=== PATIENT | female | born 1965 ===

== ENCOUNTER 2017-04-03 18:36 | Emergency (ER) | payer MEDICARE, MEDICAID ==
[2017-04-03 18:37] VITALS: BMI 29.0
[2017-04-03 18:42] VITALS: RESP 18; O2SAT 98
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
--- NOTE | 2017-04-03 20:38 | CT ---
EXAM: CT Head Without Intravenous Contrast CLINICAL HISTORY: 52 years old, female; Injury or trauma; Fall; Initial encounter; Blunt trauma (contusions or hematomas); Additional info: Fall, headache TECHNIQUE: Axial computed tomography images of the head/brain without intravenous contrast. All CT scans at this facility use one or more dose reduction techniques, viz.: automated exposure control; ma/kV adjustment per patient size (including targeted exams where dose is matched to indication; i.e. head); or iterative reconstruction technique. Coronal and sagittal reformatted images were created and reviewed. COMPARISON: CT - HEAD W/O CONTRAST 2016-03-23 19:06 FINDINGS: Brain: No intracranial hemorrhage. No mass. No edema. Ventricles: No hydrocephalus. Bones/joints: No acute fracture. Soft tissues: Unremarkable. Sinuses: Tiny air-fluid level within RIGHT maxillary sinus, present on previous examination. Mastoid air cells: Partial opacification of mastoids, grossly stable. Orbits: Unremarkable as visualized. IMPRESSION: 1. No intracranial hemorrhage. 2. Incidental/non-acute findings are described above.
--- NOTE | 2017-04-03 20:44 | CT ---
EXAM: CT Lumbar Spine Without Intravenous Contrast CLINICAL HISTORY: 52 years old, female; Injury or trauma; Fall; Initial encounter; Blunt trauma (contusions or hematomas); Prior surgery; Surgery date: 6+ months; Surgery type: Back surgery 4 yrs ago; Additional info: Fall, low back pain; H/o ls fusion TECHNIQUE: Axial computed tomography images of the lumbar spine without intravenous contrast. All CT scans at this facility use one or more dose reduction techniques, viz.: automated exposure control; ma/kV adjustment per patient size (including targeted exams where dose is matched to indication; i.e. head); or iterative reconstruction technique. Coronal and sagittal reformatted images were created and reviewed. COMPARISON: CR - LUMBAR SPINE COMPLETE 2015-08-13 10:07 FINDINGS: Vertebrae: 4 true lumbar type vertebral bodies and transitional L5 level. No acute fracture. Fusion from L3 to L5 levels with paired pedicle screws and posterior rods. Discs/spinal canal/neural foramina: No significant central canal stenosis. Mild neuroforaminal narrowing at L4-L5 level. Other bones/joints: Mild degenerative changes of sacroiliac joints. Soft tissues: Unremarkable. 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 IMPRESSION: 1. No fracture. 2. If back pain persists, consider MRI for further evaluation. 3. Incidental/non-acute findings are described above.
[2017-04-03 23:09] VITALS: BP 128/81; PULSE 81; TEMP 98
--- NOTE | 2017-04-04 09:34 | RAD ---
PROCEDURE: Left Knee Radiographs. HISTORY: Pain. COMPARISON: Left knee radiographs 12/04/2013. FINDINGS: BONES: No acute fracture or destructive bony lesion identified. JOINTS: Medial femorotibial compartment joint space narrowing is appreciate compatible degenerative joint disease. JOINT EFFUSION: None. OTHER FINDINGS: None. IMPRESSION: No acute fracture or dislocation appreciated. Stable mild to moderate degenerative joint disease.
== END 2017-04-03 23:10 | disposition home or self-care (01) ==
LOC: H.ER 18:36
DX: S09.90XA Unspecified injury of head, initial encounter (principal); S82.002A Unspecified fracture of left patella, initial encounter for closed fracture; M54.5 Low back pain; W19.XXXA Unspecified fall, initial encounter; Y92.410 Unspecified street and highway as the place of occurrence of the external cause; Z86.73 Personal history of transient ischemic attack (TIA), and cerebral infarction without residual deficits; I12.9 Hypertensive chronic kidney disease with stage 1 through stage 4 chronic kidney disease, or unspecified chronic kidney disease; F41.9 Anxiety disorder, unspecified; F32.9 Major depressive disorder, single episode, unspecified; E03.9 Hypothyroidism, unspecified
CPT/HCPCS: 29530; 70450; 72131; 73562; 96372; 99282; J1885

== ENCOUNTER 2017-08-01 07:41 | Day surgery (SDC) | payer MEDICARE, MEDICAID ==
[2017-08-01] MEDS ORDERED: Lactated Ringer's 1,000 ML IV ONE (08:14)
[2017-08-01 10:15] VITALS: BP 122/79; PULSE 90; RESP 13; TEMP 97; O2SAT 97
== END 2017-08-01 10:27 | disposition home or self-care (01) ==
LOC: H.ENDO 07:41
PROVIDERS: ATTEND Internal Medicine Gastroenterology
DX: K30 Functional dyspepsia (principal); J45.909 Unspecified asthma, uncomplicated; E78.5 Hyperlipidemia, unspecified; I10 Essential (primary) hypertension; D64.9 Anemia, unspecified; F41.8 Other specified anxiety disorders; G47.33 Obstructive sleep apnea (adult) (pediatric); E03.9 Hypothyroidism, unspecified; Z21 Asymptomatic human immunodeficiency virus [HIV] infection status; K21.9 Gastro-esophageal reflux disease without esophagitis
CPT/HCPCS: 43239; 88305; J7120

== ENCOUNTER 2018-08-21 15:15 | Emergency (ER) | payer MEDICARE, MEDICAID ==
[2018-08-21 15:16] VITALS: BMI 29.0
[2018-08-21 16:42] VITALS: O2SAT 98
--- NOTE | 2018-08-21 17:44 | ED PDOC ---
HPI: Back Time Seen by Provider: 08/21/18 17:01 Chief Complaint (Nursing): Back Pain History Per: Patient Additional Complaint(s): Pt. states on she noticed that her urine was cloudy and that she had dysuria. Reports that she was seen by her PMD Dr. Andrews that same day and was prescribed Macrobid for a UTI. Pt. states she did not take the Macrobid until yesterday and this morning she developed an oral temperature of 101.5 but did not take any meds to help with fever. Also reports this morning she developed non-radiating atraumatic R sided lower back pain. Reports back pain is worse sima she walks. Denies N/V/D, hematuria, cough, congestion, incontinence, saddle paresthesias, antipyretic use. Past Medical History Reviewed: Historical Data, Nursing Documentation, Vital Signs Vital Signs: Last Vital Signs Temp 98.7 F 08/21/18 16:39 Pulse 89 08/21/18 16:39 Resp 16 08/21/18 16:39 BP 107/67 08/21/18 16:39 Pulse Ox 98 08/21/18 16:39 Primary Care Provider: Camilla Andrews - Medical History PMH: Anemia, Anxiety, Asthma, Back Problems, Bipolar Disorder, Depression, GERD, HIV, HTN, Hypothyroidism, Kidney Stones, Rheumatoid Arthritis, TIA Denies: Chronic Kidney Disease - Surgical History Surgical History: Appendectomy, Back Surgery, Cholecystectomy - Family History Family History: States: Hypertension - Home Medications Home Medications: Ambulatory Orders Medication Instructions Recorded Albuterol HFA [Ventolin HFA 90 2 puff IH [id number] 08/01/17 mcg/actuation (8 g)] Amitriptyline HCl 100 mg PO DAILY 08/01/17 Aspirin [Aspirin Chewable] 81 mg PO DAILY 08/01/17 Dolutegravir Sodium [Tivicay] 50 mg PO DAILY 08/01/17 Emtricitabine/Tenofovir Diso 1 tab PO DAILY 08/01/17 [Truvada 200 MG-300 MG] Famotidine [Pepcid] 40 mg PO DAILY 08/01/17 Levothyroxine [Synthroid] 50 mcg PO DAILY 08/01/17 Nabumetone [Relafen] 500 mg PO BID 08/01/17 Pravastatin Sodium [Pravachol] 40 mg PO DAILY 08/01/17 Pregabalin [Lyrica] 150 mg PO DAILY 08/01/17 Sulfasalazine [Azulfidine] 500 mg PO Q6H 08/01/17 Valsartan/Hydrochlorothiazide 0.5 each PO DAILY 08/01/17 [Diovan Hct 160-25 mg Tablet] buPROPion XL [Wellbutrin XL] 300 mg PO DAILY 08/01/17 Cyclobenzaprine [Cyclobenzaprine 10 mg PO Q8 PRN #10 tab 08/21/18 HCl] - Allergies Allergies/Adverse Reactions: Allergies Allergy/AdvReac Type Severity Reaction Status Date / Time No Known Allergies Allergy Verified 08/21/18 16:39 Review of Systems ROS Statement: Except As Marked, All Systems Reviewed And Found Negative Constitutional: Positive for: Fever, Chills Genitourinary Female: Positive for: Dysuria Physical Exam - Physical Exam Appears: Positive for: Well, Non-toxic, No Acute Distress Skin: Positive for: Normal Color, Warm. Negative for: Rash Eye Exam: Positive for: Normal appearance Cardiovascular/Chest: Positive for: Regular Rate, Rhythm Respiratory: Positive for: Normal Breath Sounds. Negative for: Respiratory Distress Gastrointestinal/Abdominal: Positive for: Normal Exam, Soft. Negative for: Tenderness Back: Positive for: Normal Inspection. Negative for: L CVA Tenderness, R CVA Tenderness Neurological/Psych: Positive for: Awake, Alert, Oriented (x3) - Laboratory Results Result Diagrams: 08/21/18 17:28 08/21/18 18:10 - ECG O2 Sat by Pulse Oximetry: 98 - Progress ED Course And Treament: Labs, CT abd/pelvis w/o contrats, toradol 30mg IV ordered. Medical Decision Making Medical Decision Makin CT abd/pelvis: 1. A punctate intrarenal calculus identified at the lower pole left kidney. No obstructive uropathy bilaterally. No right-sided radiodense urolithiasis. Urinary bladder is distended but thin and smooth walled and otherwise unremarkable. 2. No bowel obstruction, measure edema, ascites or free intra peritoneal gas collection. 3. Prior cholecystectomy. 4. Splenomegaly to 14.4 cm once again. No definitive mass seen in this unenhanced CT exam. 5. 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 No local fluid collection or reaction associated. 6. Incidental trace pericardial effusion. On re-evaluation, pt. sleeping comfortably. Easily arousable. Reports good relief of pain. Informed of all results and advised to f/u PMD regarding pericardial effusion and small renal artery aneurysm. Advised to continue taking macrobid and is to return to ED immediately if symptoms worsen. Denies chest pain, SOB, headache, neck pain/stiffness. Case d/w Dr. Mcmahan who agrees with plan and care. Disposition - Clinical Impression Clinical Impression: Low back pain, Renal artery aneurysm - Patient ED Disposition Is Patient to be Admitted: No - Disposition Referrals: [facility] [Outside] Disposition: Routine/Home Disposition Time: 19:36 Condition: IMPROVED Additional Instructions: CONTINUE TAKING MACROBID FOLLOW UP WITH YOUR DOCTOR FOR FURTHER EVALUATION RETURN TO ED IMMEDIATELY IF SYMPTOMS WORSEN ED [place], thank you for letting us take care of you today. Your provider was Ramón Mcmahan MD and you were treated for RT SIDE BACK PAIN. The emergency medical care you received today was directed at your acute symptoms. If you were prescribed any medication, please fill it and take as directed. It may take several days for your symptoms to resolve. Return to the Emergency Department if your symptoms worsen, do not improve, or if you have any other problems. Please contact your doctor or call one of the physicians/clinics you have been referred to that are listed on the Patient Visit Information form that is inclu ded in your discharge packet. Bring any paperwork you were given at discharge with you along with any medications you are taking to your follow up visit. Our treatment cannot replace ongoing medical care by a primary care provider outside of the emergency department. Thank you for allowing the [facility] team to be part of your care today. If you had an X-Ray or CT scan: A Radiologist will review the ED reading if any change in treatment is needed we will contact you. If you had a blood, urine, or wound culture: It will take several days for the results, if any change in treatment is needed we will contact you. If you had an STI test: It will take 48 hours for the results. Please call after 1 week if you have not heard back. Prescriptions: Cyclobenzaprine [Cyclobenzaprine HCl] 10 mg PO Q8 PRN #10 tab PRN Reason: Muscle Spasm Instructions: Low Back Pain (DC) Forms: [facility] [employer] (Romanian) Print Language: ARMENIAN
[2018-08-21 17:53] LABS: BASO % 0.4 % (0.0-2.0); EOS # 0.1 K/uL (0.0-0.7); EOS % 1.1 % (0.0-4.0); HEMOGLOBIN 12.2 g/dL (12.0-16.0); LYMPH # 1.7 K/uL (1.0-4.3); LYMPH % 30.5 % (20.0-40.0); MEAN CELL VOLUME 93.7 fl (81.0-99.0); MEAN CORPUSCULAR HEMOGLOBIN 30.9 pg (27.0-31.0); MEAN PLATELET VOLUME 10.4 fl (7.2-11.7); MONO # 0.8 K/uL (0.0-0.8); MONO % 14.4 % (0.0-10.0); NEUT # 2.9 K/uL (1.8-7.0); NEUT % 53.6 % (50.0-75.0); NRBC % 0.2 % (0.0-0.0); RBC 3.94 Mil/uL (3.80-5.20); RED CELL DISTRIBUTION WIDTH 16.1 % (11.5-14.5); WHITE BLOOD COUNT 5.5 K/uL (4.8-10.8)
[2018-08-21 18:18] LABS: SQUAMOUS EPITHIAL 1 /hpf (0-5); URINE BILIRUBIN NEGATIVE (NEGATIVE); URINE BLOOD NEGATIVE (NEGATIVE); URINE CLARITY SLIGHTY-CLOUDY (Clear); URINE COLOR YELLOW (YELLOW); URINE GLUCOSE (UA) NEG (NEGATIVE); URINE LEUKOCYTE ESTERASE NEG Leu/uL (Negative); URINE PROTEIN NEGATIVE (NEGATIVE); URINE UROBILINOGEN 0.2-1.0 mg/dL (0.2-1.0)
[2018-08-21 18:47] LABS: ALB/GLOB RATIO 1.2 (1.0-2.1); ALBUMIN 4.3 g/dL (3.5-5.0); ALT/SGPT 93 U/L (9-52); AST/SGOT 95 U/L (14-36); BLOOD UREA NITROGEN 13 mg/dl (7-17); CALCIUM 9.4 mg/dL (8.4-10.2); GFR NON-AFRICAN AMERICAN > 60
--- NOTE | 2018-08-21 19:07 | CT ---
Date of service: 08/21/2018 PROCEDURE: CT Abdomen and Pelvis without intravenous contrast HISTORY: R sided low back pain, UTI sx COMPARISON: Abdomen pelvis CT with contrast 06/19/2018. TECHNIQUE: Helical CT of the abdomen and pelvis was performed without oral or intravenous contrast as per referring physician request. Coronal and sagittal reformats were generated.. Contrast dose: None Radiation dose: Total exam DLP = 878.48 mGy-cm. This CT exam was performed using one or more of the following dose reduction techniques: Automated exposure control, adjustment of the mA and/or kV according to patient size, and/or use of iterative reconstruction technique. FINDINGS: LOWER THORAX: Trace anterior pericardial effusion in the interval. Cardiac size appears upper limits normal. LIVER: Liver appears upper limits normal size. No definitive mass appreciable. GALLBLADDER AND BILE DUCTS: Prior cholecystectomy reiterated. PANCREAS: Unremarkable. No gross lesion or ductal dilatation. SPLEEN: Splenomegaly reiterated to 14.4 cm. No definitive mass appreciable associated in this unenhanced CT exam. ADRENALS: Unremarkable. No mass. KIDNEYS AND URETERS: A punctate intrarenal calculus is identified at the lower pole left kidney. No additional radiodense urolithiasis bilaterally. No obstructive uropathy bilaterally. No definitive perinephric changes bilaterally. Potential left mm right renal artery aneurysm likely present but poorly characterized given noncontrast technique. VASCULATURE: Unremarkable. No aortic aneurysm. No aortic atherosclerotic calcification or mural plaque present. BOWEL: Stomach is collapsed and not well evaluated. Further, evaluation of the gastrointestinal tract is limited due to the lack of oral contrast administration. No bowel obstruction is identified. Moderate fecal loading is seen throughout the colon. APPENDIX: No CT evidence of appendicitis. PERITONEUM: Unremarkable. No free fluid. No free air. LYMPH NODES: Unremarkable. No enlarged lymph nodes. BLADDER: Urinary bladder is distended but smooth and thin wall. No radiodense urolithiasis associated. REPRODUCTIVE: Prior hysterectomy. BONES: No interval acute fracture appreciable. Inferior lumbar post spinal fusion hardware is reiterated from L3-S1. No fracture of hardware is identified. Including intervertebral fusion at L 4 5 and L5-S1 OTHER FINDINGS: None. IMPRESSION: 1. A punctate intrarenal calculus identified at the lower pole left kidney. No obstructive uropathy bilaterally. No right-sided radiodense urolithiasis. Urinary bladder is distended but thin and smooth walled and otherwise unremarkable. 2. No bowel obstruction, measure edema, ascites or free intra peritoneal gas collection. 3. Prior cholecystectomy. 4. Splenomegaly to 14.4 cm once again. No definitive mass seen in this unenhanced CT exam. 5. 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 No local fluid collection or reaction associated. 6. Incidental trace pericardial effusion.
[2018-08-21 20:15] VITALS: BP 111/72; PULSE 85; RESP 18; TEMP 98.6
== END 2018-08-21 20:16 | disposition home or self-care (01) ==
LOC: H.ER 15:15
DX: M54.9 Dorsalgia, unspecified (principal); I72.2 Aneurysm of renal artery; E03.9 Hypothyroidism, unspecified; F31.9 Bipolar disorder, unspecified; Z86.73 Personal history of transient ischemic attack (TIA), and cerebral infarction without residual deficits
CPT/HCPCS: 74176; 80053; 81003; 81025; 85025; 87040; 87086; 96374; 99284; J1885

== ENCOUNTER → 2018-08-30 | Emergency (ER) | payer MEDICARE, MEDICAID ==
[~2018-08-30] MED LIST: Sodium Chloride 0.9% 1,000 ML IV STA; cefTRIAXone (Rocephin) 1 gm Inj ONE
[2018-08-30 17:14] VITALS: BMI 29.0
[2018-08-30 18:58] LABS: VENOUS BLOOD GAS BASE EXCESS 1.2 mmol/L (0.0-2.0); VENOUS BLOOD GAS PCO2 50 mmHg (40-60); VENOUS BLOOD GAS PO2 17 mm/Hg (30-55); VENOUS BLOOD PH 7.35 (7.32-7.43)
[2018-08-30 19:03] LABS: BASO % 0.5 % (0.0-2.0); EOS % 0.6 % (0.0-4.0); HEMOGLOBIN 12.5 g/dL (12.0-16.0); LYMPH # 2.6 K/uL (1.0-4.3); LYMPH % 31.1 % (20.0-40.0); MEAN CELL VOLUME 93.4 fl (81.0-99.0); MEAN CORPUSCULAR HEMOGLOBIN 30.5 pg (27.0-31.0); MEAN CORPUSCULAR HGB CONC 32.6 g/dL (33.0-37.0); MEAN PLATELET VOLUME 10.9 fl (7.2-11.7); MONO # 0.9 K/uL (0.0-0.8); MONO % 10.9 % (0.0-10.0); NEUT # 4.8 K/uL (1.8-7.0); NEUT % 56.9 % (50.0-75.0); RBC 4.12 Mil/uL (3.80-5.20); RED CELL DISTRIBUTION WIDTH 16.5 % (11.5-14.5); WHITE BLOOD COUNT 8.5 K/uL (4.8-10.8)
[2018-08-30 19:13] LABS: SQUAMOUS EPITHIAL 7 /hpf (0-5); URINE BACTERIA MANY (<OCC); URINE BILIRUBIN NEGATIVE (NEGATIVE); URINE BLOOD NEGATIVE (NEGATIVE); URINE CLARITY SLIGHTY-CLOUDY (Clear); URINE COLOR YELLOW (YELLOW); URINE GLUCOSE (UA) NEG (NEGATIVE); URINE LEUKOCYTE ESTERASE TRACE Leu/uL (Negative); URINE PROTEIN NEGATIVE (NEGATIVE); URINE UROBILINOGEN 0.2-1.0 mg/dL (0.2-1.0)
[2018-08-30 19:14] LABS: ALB/GLOB RATIO 1.3 (1.0-2.1); ALBUMIN 4.6 g/dL (3.5-5.0); ALT/SGPT 113 U/L (9-52); AST/SGOT 110 U/L (14-36); BLOOD UREA NITROGEN 28 mg/dl (7-17); GFR NON-AFRICAN AMERICAN 58
--- NOTE | 2018-08-30 19:19 | ED PDOC ---
HPI: Female Pain Time Seen by Provider: 08/30/18 18:30 Chief Complaint (Nursing): Female Genitourinary History Per: Patient Additional Complaint(s): Pt. states last week she was dx with a UTI. Pt. completed a full course of Macrobid and dysuria and frequency resolved. Pt. states yesterday she developed dysuria and frequency once again. Pt. states she also felt dizzy, warm, and had chills yesterday. She checked her temperature orally which was 101. Pt. states she took a cold shower and dizziness and fever resolved. Also reports having R sided lower back pain. Of note, pt. states she has not taken any antipyretics. Denies vaginal discharge, hematuria, incontinence, vomiting, diarrhea, chest pain, SOB. Past Medical History Reviewed: Historical Data, Nursing Documentation, Vital Signs Primary Care Provider: FAMILY PROVIDER,NO - Medical History PMH: Anemia, Anxiety, Asthma, Back Problems, Bipolar Disorder, Depression, GERD, HIV, HTN, Hypothyroidism, Kidney Stones, Rheumatoid Arthritis, TIA Denies: Chronic Kidney Disease - Surgical History Surgical History: Appendectomy, Back Surgery, Cholecystectomy - Family History Family History: States: Hypertension - Home Medications Home Medications: Ambulatory Orders Medication Instructions Recorded Albuterol HFA [Ventolin HFA 90 2 puff IH [id number] 08/01/17 mcg/actuation (8 g)] Amitriptyline HCl 100 mg PO DAILY 08/01/17 Aspirin [Aspirin Chewable] 81 mg PO DAILY 08/01/17 Dolutegravir Sodium [Tivicay] 50 mg PO DAILY 08/01/17 Emtricitabine/Tenofovir Diso 1 tab PO DAILY 08/01/17 [Truvada 200 MG-300 MG] Famotidine [Pepcid] 40 mg PO DAILY 08/01/17 Levothyroxine [Synthroid] 50 mcg PO DAILY 08/01/17 Nabumetone [Relafen] 500 mg PO BID 08/01/17 Pravastatin Sodium [Pravachol] 40 mg PO DAILY 08/01/17 Pregabalin [Lyrica] 150 mg PO DAILY 08/01/17 Sulfasalazine [Azulfidine] 500 mg PO Q6H 08/01/17 Valsartan/Hydrochlorothiazide 0.5 each PO DAILY 08/01/17 [Diovan Hct 160-25 mg Tablet] buPROPion XL [Wellbutrin XL] 300 mg PO DAILY 08/01/17 Cyclobenzaprine [Cyclobenzaprine 10 mg PO Q8 PRN #10 tab 08/21/18 HCl] Cefdinir [Omnicef] 300 mg PO BID #14 cap 08/30/18 Ondansetron ODT [Zofran ODT] 4 mg PO TID #10 odt 08/30/18 - Allergies Allergies/Adverse Reactions: Allergies Allergy/AdvReac Type Severity Reaction Status Date / Time No Known Allergies Allergy Verified 08/30/18 17:33 Review of Systems ROS Statement: Except As Marked, All Systems Reviewed And Found Negative Genitourinary Female: Positive for: Dysuria, Frequency Musculoskeletal: Positive for: Back Pain Physical Exam - Physical Exam Appears: Positive for: Well, Non-toxic, No Acute Distress Skin: Positive for: Normal Color, Warm. Negative for: Rash Eye Exam: Positive for: Normal appearance Neck: Positive for: Supple Cardiovascular/Chest: Positive for: Regular Rate, Rhythm Respiratory: Positive for: Normal Breath Sounds. Negative for: Plerual Rub Gastrointestinal/Abdominal: Positive for: Normal Exam, Soft. Negative for: Tenderness Back: Positive for: Normal Inspection. Negative for: L CVA Tenderness, R CVA Tenderness Neurological/Psych: Positive for: Awake, Alert, Oriented (x3) - Laboratory Results Result Diagrams: 08/30/18 18:45 08/30/18 18:45 Lab Results: pO2 17 mm/Hg (30-55) L 08/30/18 18:55 VBG pH 7.35 (7.32-7.43) 08/30/18 18:55 VBG pCO2 50 mmHg (40-60) 08/30/18 18:55 VBG HCO3 23.8 mmol/L 08/30/18 18:55 VBG Total CO2 29.1 mmol/L (22-28) H 08/30/18 18:55 VBG O2 Sat (Calc) 22.4 % (40-65) L 08/30/18 18:55 VBG Base Excess 1.2 mmol/L (0.0-2.0) 08/30/18 18:55 VBG Potassium 3.8 mmol/L (3.6-5.2) 08/30/18 18:55 Sodium 138.0 mmol/L (132-148) 08/30/18 18:55 Chloride 102.0 mmol/L (98-107) 08/30/18 18:55 Glucose 69 mg/dL (65-105) 08/30/18 18:55 Lactate 1.1 mmol/L (0.7-2.1) 08/30/18 18:55 FiO2 21.0 % 08/30/18 18:55 Urine Color Yellow (YELLOW) 08/30/18 18:45 Urine Clarity Slighty-cloudy (Clear) 08/30/18 18:45 Urine pH 7.0 (5.0-8.0) 08/30/18 18:45 Ur Specific [place] 1.014 (1.003-1.030) 08/30/18 18:45 Urine Protein Negative mg/dL (NEGATIVE) 08/30/18 18:45 Urine Glucose (UA) Neg mg/dL (NEGATIVE) 08/30/18 18:45 Urine Ketones Negative mg/dL (NEGATIVE) 08/30/18 18:45 Urine Blood Negative (NEGATIVE) 08/30/18 18:45 Urine Nitrate Positive (NEGATIVE) H 08/30/18 18:45 Urine Bilirubin Negative (NEGATIVE) 08/30/18 18:45 Urine Urobilinogen 0.2-1.0 mg/dL (0.2-1.0) 08/30/18 18:45 Ur Leukocyte Esterase Trace Shira/uL (Negative) 08/30/18 18:45 Urine RBC (Auto) < 1 /hpf (0-3) 08/30/18 18:45 Urine Microscopic WBC 12 /hpf (0-5) H 08/30/18 18:45 Ur Squamous Epith Cells 7 /hpf (0-5) H 08/30/18 18:45 Urine Bacteria Many (<OCC) H 08/30/18 18:45 - Progress ED Course And Treament: Labs, UA, renal US (pt. had CT abd/pelvis done during last ED visit), toradol 30mg IV, zofran 4mg IV ordered. 1945 US: No acute renal abnormality. No hydronephrosis. Right 1.3 cm renal cyst. On re-evaluation, pt. reports feeling much better. Rocephin 1gm IV ordered. Pt. informed of results. Advised to f/u with [facility] for further evaluation but is to return to ED immediately if symptoms worsen. Disposition - Clinical Impression Clinical Impression: Urinary tract infection - Patient ED Disposition Is Patient to be Admitted: No - Disposition Disposition: Routine/Home Disposition Time: 19:45 Condition: IMPROVED Additional Instructions: FOLLOW UP WITH DR. LEONARD FOR FURTHER EVALUATION RETURN TO ED IMMEDIATELY IF SYMPTOMS WORSEN ED [place], thank you for letting us take care of you today. Your provider was Adama Orellana III, DO and you were treated for UTI. The emergency medical care you received today was directed at your acute symptoms. If you were prescribed any medication, please fill it and take as directed. It m ay take several days for your symptoms to resolve. Return to the Emergency Department if your symptoms worsen, do not improve, or if you have any other problems. Please contact your doctor or call one of the physicians/clinics you have been referred to that are listed on the Patient Visit Information form that is included in your discharge packet. Bring any paperwork you were given at discharge with you along with any medications you are taking to your follow up visit. Our treatment cannot replace ongoing medical care by a primary care provider outside of the emergency department. Thank you for allowing the [facility] team to be part of your care today. If you had an X-Ray or CT scan: A Radiologist will review the ED reading if any change in treatment is needed we will contact you. If you had a blood, urine, or wound culture: It will take several days for the results, if any change in treatment is needed we will contact you. If you had an STI test: It will take 48 hours for the results. Please call after 1 week if you have not heard back. Prescriptions: Cefdinir [Omnicef] 300 mg PO BID #14 cap Ondansetron ODT [Zofran ODT] 4 mg PO TID #10 odt Instructions: Urinary Tract Infection, Adult (DC) Forms: [employer] (Chilean) Print Language: BANGLADESHI
[2018-08-30 19:54] VITALS: BP 118/60; PULSE 91; RESP 16; TEMP 98.5; O2SAT 97
--- NOTE | 2018-08-31 09:19 | US ---
Date of service: 08/30/2018 PROCEDURE: Ultrasound of the Kidneys HISTORY: R sided lower back pain; UTI COMPARISON: None available. TECHNIQUE: Sonogram of the kidneys. FINDINGS: RIGHT KIDNEY: Measures: 11.4 x 5.1 x 5.7 cm. Normal in size, contour and echogenicity. No stone, solid mass lesion or hydronephrosis visualized. There is hypoechoic cyst at the mid to lower pole of the right kidney measures 1.4 x 1.4 x 0.9 centimeter. LEFT KIDNEY: Measures: 10.4 x 5.3 x 5.6 cm. Normal in size, contour and echogenicity. No stone, solid mass lesion or hydronephrosis visualized. OTHER FINDINGS: None. IMPRESSION: No evidence of hydronephrosis. No ultrasound evidence of acute renal abnormality. 1.3 centimeter right renal cyst. Preliminary report was submitted by [facility] Radiology contains concordant findings.
== END | disposition home or self-care (01) ==
LOC: H.ER 17:14
DX: N39.0 Urinary tract infection, site not specified (principal); F31.9 Bipolar disorder, unspecified; I10 Essential (primary) hypertension; K21.9 Gastro-esophageal reflux disease without esophagitis; N28.1 Cyst of kidney, acquired; Z79.899 Other long term (current) drug therapy; Z86.73 Personal history of transient ischemic attack (TIA), and cerebral infarction without residual deficits
CPT/HCPCS: 76770; 80053; 81003; 82803; 85025; 87040; 87086; 87181; 87491; 87591; 96374; 96375; 99283; J0696; J1885; J2405; J7030